=== PATIENT | female | born 1980 | race Two or more races ===

== ENCOUNTER 2021-08-06 18:19 | Inpatient (IN) ==
[2021-08-06 18:26] VITALS: BMI 30.9
[2021-08-06] MEDS ORDERED: D5 LR + PITOCIN 10 UNITS/L 10 UNITS/1,000 ML BAG IV PRN (18:39)
[2021-08-06] MEDS ORDERED: PHENERGAN INJ 25 MG IM PRN ×2 (18:39→20:23)
[2021-08-06] MEDS ORDERED: MORPHINE SULFATE INJ 2 MG INJ IVP PRN (18:39)
[2021-08-06] MEDS ORDERED: PITOCIN IVP ONE (18:39)
[2021-08-06] MEDS ORDERED: REGLAN INJ 10 MG VIAL IVP PRN (18:39)
[2021-08-06] MEDS ORDERED: STADOL INJ IVP PRN (18:41)
[2021-08-06] MEDS ORDERED: BETADINE SOLN ONE (18:44)
[2021-08-06] MEDS: D5 1/2 NS 1,000 ML 1,000 ML IV SCH (18:45)
[2021-08-06] MEDS ORDERED: D5 1/2 NS 1,000 mL + PITOCIN 20 UNITS/L IV 20 UNITS/1,000 ML BAG IV ONE (18:45)
[2021-08-06] MEDS ORDERED: D5 LR + PITOCIN 10 UNITS/L 10 UNITS/1,000 ML BAG IV ONE ×2 (18:45→19:02)
[2021-08-06 18:51] LABS: AMNISURE ROM TEST NO MEMBRANES RUPTURE (NO RUPTURE)
[2021-08-06 19:01] LABS: BASOPHILS % (AUTO) 0.5 % (0.2-1.0); EOSINOPHILS # (AUTO) 0.1 x10^3/uL (0.0-0.2); EOSINOPHILS % (AUTO) 0.8 % (0.9-2.9); HEMATOCRIT 37.7 % (36.0-47.0); HEMOGLOBIN 13.2 g/dL (12.0-16.0); LYMPHOCYTES % (AUTO) 29.9 % (21.0-51.0); MEAN CORPUSCULAR HEMOGLOBIN 30.8 pg (27.0-34.0); MEAN CORPUSCULAR HGB CONC 35.1 g/dL (33.0-35.0); MEAN CORPUSCULAR VOLUME 87.6 fL (80.0-100.0); MEAN PLATELET VOLUME 9.1 fL (7.4-11.0); MONOCYTES # (AUTO) 0.4 x10^3/uL (0.3-0.8); MONOCYTES % (AUTO) 4.3 % (0.0-13.0); NEUTROPHILS # (AUTO) 6.4 x10^3/uL (2.2-4.8); NEUTROPHILS % (AUTO) 64.5 % (42.0-75.0); RED BLOOD COUNT 4.31 X10^6/uL (3.5-5.4); RED CELL DISTRIBUTION WIDTH 13.7 % (11.6-16.5)
[2021-08-06] MEDS ORDERED: AMPICILLIN VIAL 2 GRAM ONE (19:02)
[2021-08-06] MEDS ORDERED: NS 100 ML IV 100 ML ONE (19:02)
[2021-08-06 19:03] LABS: BLOOD UREA NITROGEN 6 mg/dL (7-18); CALCIUM 8.7 mg/dL (8.5-10.1); CARBON DIOXIDE 26.2 mmol/L (21-32); CHLORIDE 102 mmol/L (98-107); CREATININE 0.79 mg/dL (0.55-1.02); SODIUM 140 mmol/L (136-145); eGFR NON BLACK RACES > 60 (>60)
--- NOTE | 2021-08-06 19:27 | DR.OB ---
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 Head delivered over intact perineum. No nuchal cord. Nose and mouth bulb suctioned. Body delivered over intact perineum. Cord clamped x 2 and cut. handed to attendant. Cord sent for gases. Placenta delivered spontaneously / intact / 3 vessel cord. No CVX / vaginal / perineal tears. Viable male , VTX/OA, wt=8'2" and 7/8, stable to NBN. Mother stable to RR. QVA=753by.
[2021-08-06] MEDS ORDERED: STADOL INJ ONE (20:06)
[2021-08-06] MEDS ORDERED: MOTRIN TAB 800 MG PO PRN (20:23)
[2021-08-06] MEDS ORDERED: D5 1/2 NS 1,000 ML 1,000 ML with PITOCIN 20 UNITS IV SCH ×2 (21:00)
[2021-08-06] MEDS ORDERED: DERMOPLAST PAIN RELIEF SPRAY TOP PRN (21:07)
[2021-08-06] MEDS ORDERED: MILK OF MAGNESIA PO PRN (21:07)
[2021-08-06] MEDS ORDERED: AMBIEN PO PRN (21:07)
[2021-08-07] MEDS: MOTRIN TAB 800 MG PO PRN ×2 (00:42→14:25)
[2021-08-07 04:19] LABS: HEMATOCRIT 32.9 % (36.0-47.0)
[2021-08-07 04:25] LABS: HEMOGLOBIN 11.2 g/dL (12.0-16.0)
[2021-08-07] MEDS: D5 1/2 NS 1,000 ML 1,000 ML IV SCH ×2 (05:00→14:31)
[2021-08-07] MEDS ORDERED: NS 100 ML IV 100 ML ONE (08:21)
[2021-08-07] MEDS ORDERED: ANCEF VIAL 1 GRAM ONE (08:21)
[2021-08-07] MEDS ORDERED: BETADINE SOLN ONE (09:08)
[2021-08-07] MEDS ORDERED: FENTANYL VIAL INJ 100 mcg ONE (09:27)
[2021-08-07] MEDS ORDERED: BRIDION ONE (09:27)
[2021-08-07] MEDS ORDERED: ZEMURON 50 MG VIAL ONE (09:27)
[2021-08-07] MEDS ORDERED: OFIRMEV IV 1000 MG VIAL 1,000 MG/100 ML VIAL IV ONE (09:27)
[2021-08-07] MEDS ORDERED: PEPCID 20 MG VIAL ONE (09:27)
[2021-08-07] MEDS ORDERED: DIPRIVAN VIAL ONE (09:32)
[2021-08-07] MEDS ORDERED: LACRI-LUBE S.O.P. ONE (09:32)
[2021-08-07] MEDS ORDERED: KETAMINE HCL ONE (09:32)
[2021-08-07] MEDS ORDERED: TORADOL 30 MG VIAL ONE (09:32)
[2021-08-07] MEDS ORDERED: VERSED ONE (09:32)
[2021-08-07] MEDS ORDERED: XYLOCAINE 2 % (PLAIN) ONE (09:32)
[2021-08-07] MEDS ORDERED: DECADRON INJ ONE (09:32)
[2021-08-07] MEDS ORDERED: BENADRYL INJ 50 MG VIAL IVP PRN (10:28)
[2021-08-07] MEDS ORDERED: ZOFRAN INJ 4 MG VIAL IVP PRN (10:28)
[2021-08-07] MEDS ORDERED: DILAUDID INJ IVP PRN (10:28)
[2021-08-07] MEDS ORDERED: REGLAN INJ 10 MG VIAL IVP PRN (10:28)
[2021-08-07] MEDS ORDERED: MYLICON TAB 80 MG CHEW PO PRN (11:41)
[2021-08-07] MEDS: PERCOCET TAB 5/325 MG PO PRN ×3 (12:50→22:17)
[2021-08-07] MEDS: PRENATAL PLUS PO SCH (14:31)
[2021-08-07 22:36] LABS: APPEARANCE,URINE HAZY (CLEAR); BILIRUBIN,URINE NEGATIVE (NEGATIVE); BLOOD/HEMOGLOBIN,URINE 5+ (NEGATIVE); COLOR,URINE AMBER (YELLOW); GLUCOSE, URINE NEGATIVE (NEGATIVE); KETONES,URINE NEGATIVE (NEGATIVE); LEUKOCYTE ESTERASE ,URINE 2+ (NEGATIVE); NITRITES,URINE NEGATIVE (NEGATIVE); PROTEIN,URINE 3+ (NEGATIVE); UROBILINOGEN,URINE 2+ (NORMAL)
[2021-08-07 22:46] LABS: BACTERIA,URINE 1+ /HPF (NEGATIVE); RBC,URINE TNTC /HPF (0-3); SQUAMOUS EPITHELIAL CELL,UR MODERATE /HPF (NEGATIVE)
[2021-08-08] MEDS: PERCOCET TAB 5/325 MG PO PRN (07:40)
[2021-08-08] MEDS: PRENATAL PLUS PO SCH (08:04)
[2021-08-08 11:52] VITALS: BP 123/84
== END 2021-08-08 13:15 | disposition home or self-care (01) | DRG 798 ==
LOC: ER 18:19 → LD 18:39 → MED/SURG 21:08
PROVIDERS: ADMIT Specialist; ATTEND Specialist